=== PATIENT | female | born 1945 | race Caucasian/White ===

== ENCOUNTER → 2016-11-04 | Day surgery (SDC) | payer MEDICARE, OTHER ==
[~2016-11-04] VITALS: Ht 158.8 cm; Wt 96.4 kg
[~2016-11-04] MED LIST: ALEVE220 MG PO; AMARYL2 MG PO; ASPIRIN EC81 MG PO; ASPIRIN325 MG PO; BACTRIM DS1 TAB PO; FLONASE 50 MCG/16 GM NOSE; JANUMET XR 50-1 EAC1 PO; LIPITOR10 MG PO; PERCOCET 5-3251 EACH PO; PRINIVIL (ZESTR20 MG PO; TAMIFLU75 MG PO
--- NOTE | ~2016-11-04 | OR ---
PATIENT'S NAME: EMELY MCCLAIN [facility] AGE: 70 Y [address] ROOM: [place] [address] LOCATION: [facility] ADMIT DATE: 11/04/2016 OR/Procedure Report DISCHARGE DATE: FAMILY PHYSICIAN: Tor Hernandez ATTENDING PHYSICIAN: GIANNI RODRÍGEUZ SURGEON: Gianni Rodríguez MD SENIOR NET APPLICATION DEVELOPER: Tito Mejia PA-C DATE OF PROCEDURE: 11/04/2016 PREOPERATIVE DIAGNOSES: 1. Left footdrop secondary to rupture of tibialis anterior tendon. 2. Gastrocnemius equinus/shortened Achilles tendon. POSTOPERATIVE DIAGNOSES: 1. Left footdrop secondary to rupture of tibialis anterior tendon. 2. Gastrocnemius equinus/shortened Achilles tendon. PROCEDURES PERFORMED: 1. Left extensor hallucis longus tendon transfer to medial cuneiform. 2. Left gastrocnemius recession procedure. 3. Tenolysis of tibialis anterior tendon. 4. Tenodesis of extensor hallucis longus tendon to the extensor hallucis brevis tendon at first metatarsophalangeal joint. 5. Use of intraoperative fluoroscopy, less than one hour. ANESTHESIA: General endotracheal anesthesia with peripheral nerve block. FLUIDS: See anesthesia report. ESTIMATED BLOOD LOSS: Minimal. TOURNIQUET: Left proximal thigh, 250 mmHg. SPECIMENS: None. COMPLICATIONS: None. DISPOSITION: Stable, in PACU. IMPLANTS: Arthrex Bio-Tenodesis screw for EHL tendon transfer to medial cuneiform. INDICATIONS: Ms. Mcclain is a pleasant, 70-year-old female who underwent the noted procedures above. The risks, benefits, and alternatives to pursuing surgical intervention were discussed with the patient in detail. The patient PATIENT'S NAME: EMELY MCCLAIN [facility] AGE: 70 Y [address] ROOM: [place] [address] LOCATION: [facility] ADMIT DATE: 11/04/2016 OR/Procedure Report DISCHARGE DATE: FAMILY PHYSICIAN: Tor Hernandez ATTENDING PHYSICIAN: GIANNI RODRÍGUEZ elected to proceed with surgery as noted above. Anesthesia was consulted for their perioperative evaluation of the patient. I marked the left lower extremity, indicating the correct surgical site. PROCEDURE IN DETAIL: The patient was taken from the holding area to the operating room. A time-out was performed. General endotracheal anesthesia was administered. A peripheral nerve block had been previously placed. Clindamycin antibiotic was administered for perioperative prophylaxis. The left lower extremity was then prepped and draped in a sterile fashion. I turned my attention to the left lower extremity. An Esmarch was used to exsanguinate the limb, and the tourniquet was inflated to 250 mmHg. I introduced intraoperative fluoroscopy. I identified the medial cuneiform and marked it. I began with an incision over the first MTP joint. A skin incision was carried through skin and subcutaneous tissue down to the EHL tendon. I lysed the EHL tendon at the first MTP joint. Using FiberWire, I tenodesed these 2 tendons together. I irrigated the wound and then closed it in layers. I turned my attention to the anterior aspect of the ankle. I could feel the palpable defect from where the tibialis anterior tendon ruptured. I made an anterior incision to the front of the ankle. The incision was carried through skin and subcutaneous tissue. I identified the extensor retinaculum, lysed it, cut it, and tagged it with 0 Vicryl suture. I identified the tibialis anterior tendon sheath. I excised the distal portion of the tendon that was thickened and tendinotic. I identified the extensor hallucis longus tendon under a soft tissue tunnel. I brought the tendon and its stump proximally. There was a fair amount of excess tendon. I passed the tendon through the tibialis anterior tendon sheath and through the residual healthy proximal stump of the tibialis anterior tendon. I placed FiberWire tagging sutures beneath it so that there would be no propagation or tearing of the tendon. I then introduced intraoperative fluoroscopy again. I identified the medial cuneiform. Using a Beath pin, I measured my EHL tendon, and then I drilled using an acShyp reamer through the medial cuneiform in a center-center position. This was confirmed fluoroscopically. I then turned my attention to the medial aspect of the leg. I made incisions through the skin and subcutaneous tissue down through fascia to the gastrocnemius aponeurosis. I identified the gastrocnemius aponeurosis and performed my gastrocnemius recession procedure. A dorsiflexion movement was then placed on the ankle, and there was good excursion noted, indicating successful gastrocnemius recession. The wound was then irrigated and closed in layers. With the ankle dorsiflexed 10 degrees past neutral, I advanced the EHL tendon PATIENT'S NAME: EMELY MCCLAIN [facility] AGE: 70 Y [address] ROOM: [place] [address] LOCATION: [facility] ADMIT DATE: 11/04/2016 OR/Procedure Report DISCHARGE DATE: FAMILY PHYSICIAN: Tor Hernandez ATTENDING PHYSICIAN: GIANNI RODRÍGUEZ through my bony tunnel at the medial cuneiform. With my technician assistant holding the ankle in 10 degrees of dorsiflexion with tension on the EHL tendon passed through a bony tunnel, I then placed my Bio-Tenodesis screw. There was good interference noted when the screw was introduced. I then removed the stump of the tendon to the plantar surface of the foot. I had my technician assistant release the dorsiflexion movement on the ankle, and I found that the ankle remained in approximately 5 degrees of dorsiflexion past neutral without any assistance. The wound was then closed in layers using 0 Vicryl to approximate the extensor retinaculum, followed by 2-0 Vicryl to approximate the subcutaneous tissue, followed by hamiltno for the skin. The patient was then placed into a well-padded short-leg splint with the ankle in approximately 10 degrees of dorsiflexion past neutral and allowed to dry. Note that after the splint was placed, the tourniquet was let down, and then the patient was transferred from the operating table onto the stretcher and extubated. She was taken to the recovery room in stable condition. There were no intraoperative complications noted. Of note, my PA, Tito Mejia PA-C, played an integral role in the intraoperative care of this patient. This included preoperative positioning, intraoperative expert retraction, and closing and splinting functions. IMPRESSION: The patient is status post the noted procedures above. PLAN: The patient will be nonweightbearing on the left lower extremity in a splint. She will be encouraged to rest, ice, and elevate the leg going forward. She will be placed on aspirin for DVT prophylaxis. She will be given Percocet for pain control. She will be discharged home from the PACU provided she meets PACU discharge criteria. She will follow up with me in 2 weeks in the office for her first postoperative visit. MD ROGER PIERRE/derik /[id number] d: 11/04/161641 t: 11/05/161121, OPERATIVE SUMMARY
--- NOTE | 2016-11-04 16:25 | NUR ---
LATE ENTRY. VERBAL REPORT GIVEN TO JESI, PATIENT IS STABLE AND CARE IS TRANSFERED TO [facility]. DRESSING REMAIN C/D/I. GOOD PAIN CONTROL AT THIS TIME.
== END | disposition disaster alternative care site (69) ==
LOC: GPOC 10-30 13:00 → GSDC 07:00
PROC: 0L8P0ZZ Division of Left Lower Leg Tendon, Open Approach (ICD-10-PCS; principal; 2016-11-04)
PROC: 0LXP0ZZ Transfer Left Lower Leg Tendon, Open Approach (ICD-10-PCS; 2016-11-04)
PROC: 0LNP0ZZ Release Left Lower Leg Tendon, Open Approach (ICD-10-PCS; 2016-11-04)
PROC: 0LMP0ZZ Reattachment of Left Lower Leg Tendon, Open Approach (ICD-10-PCS; 2016-11-04)
DX: S86.212A Strain of muscle(s) and tendon(s) of anterior muscle group at lower leg level, left leg, initial encounter (principal); M21.6X2 Other acquired deformities of left foot; E11.9 Type 2 diabetes mellitus without complications; Z79.84 Long term (current) use of oral hypoglycemic drugs; I10 Essential (primary) hypertension; E78.5 Hyperlipidemia, unspecified
CPT/HCPCS: C1713; J2250; J3010; J7030

== ENCOUNTER 2017-02-05 11:30 | Inpatient (IN) | payer MEDICARE, OTHER ==
[~2017-02-05] VITALS: Ht 157.5 cm; Wt 93.5 kg
--- NOTE | ~2017-02-05 | DS ---
PATIENT'S NAME: EMELY MCCLAIN [facility] AGE: 71 Y [address] ROOM: [address] [address] LOCATION: [facility] ADMIT DATE: 02/05/2017 Discharge Summary DISCHARGE DATE: 02/07/2017 FAMILY PHYSICIAN: Tor Hernandez ATTENDING PHYSICIAN: Gaudencio Beltrán ADMITTING DIAGNOSIS: Left dorsum of the foot wound dehiscence with abscess and purulent drainage. DISCHARGE DIAGNOSIS: Left dorsum of the foot wound dehiscence with abscess and purulent drainage. SECONDARY DIAGNOSES: 1. Diabetes mellitus type 2. 2. Hypertension. 3. Hyperlipidemia. 4. Osteoarthritis. 5. Obesity. PROCEDURES: The patient underwent the following procedure on February 05, 2017, by Dr. Beltrán. Irrigation and debridement of the left foot wound abscess. Debridement including skin, subcutaneous tissue, muscle, and fascia. Incision measured 5 cm in length x 2 cm in width x 2 cm in depth. CONSULTATION: The hospitalist service for medical management. HISTORY OF PRESENT ILLNESS: The patient is a 71-year-old female, who was seen by Dr. Beltrán in the office with complaints of a wound on the dorsum of her left foot with purulent drainage. The patient had undergone a tendon transfer procedure with tenolysis and tendinosis in October because of chronic foot drop secondary to rupture of the tibialis anterior tendon. The patient had first noted before coming in the office some redness and swelling. The patient later noted that there was a wound on the dorsum of her foot with some purulent drainage, and made an appointment to be seen by Dr. Beltrán. After being examined in the office by Dr. Beltrán, the patient was admitted to the hospital for irrigation and debridement of the wound. HOSPITAL COURSE: The patient was admitted on February 05, [address] Beltrán' office. She underwent the above described procedure and tolerated it well. The patient was put on postoperative IV antibiotics. She was weightbearing as tolerated during her admission. The patient was medically managed and optimized by the hospitalist service. The patient was felt to be stable for discharge to home on February 07, 2017 and was discharged at that time. DISCHARGE INSTRUCTIONS: The patient is to be weightbearing as tolerated with a boot. She has no restrictions on diet. She is to contact Dr. Beltrán' PATIENT'S NAME: EMELY MCCLAIN [facility] AGE: 71 Y [address] ROOM: [place] [address] LOCATION: [facility] ADMIT DATE: 02/05/2017 Discharge Summary DISCHARGE DATE: 02/07/2017 FAMILY PHYSICIAN: Tor Hernandez ATTENDING PHYSICIAN: Gaudencio Beltrán office for followup appointment. DISCHARGE MEDICATIONS: New medications: 1. Bactrim DS one tab p.o. b.i.d. by seven days. 2. Percocet 5/325 one tablet p.o. every 6 hours as needed for pain. Otherwise, the patient is to continue her preadmission medications as instructed by her internal medicine doctor. DISCHARGE STATUS: Good. KAMLESH LUIS PA-C FOR MD DOMINIQUE PIERRE/derik /[id number] d: 02/23/17 0158 t: 02/24/17 1412, DISCHARGE SUMMARY
--- NOTE | ~2017-02-05 | CON ---
PATIENT'S NAME: EMELY MCCLAIN [facility] AGE: 71 Y [address] ROOM: [address] [address] [place] [facility] DATE: 02/05/2017 Consultation DISCHARGE DATE: FAMILY PHYSICIAN: Tor Hernandez ATTENDING PHYSICIAN: GIANNI RODRÍGUEZ DATE OF CONSULTATION: 02/05/2017 REFERRING PHYSICIAN: Prakash Norman MD CHIEF COMPLAINT/REASON FOR CONSULTATION: Medical management in the setting of left foot abscess. HISTORY OF PRESENTING ILLNESS: This 71-year-old white female, with history of diabetes mellitus type 2 and previous history of ankle surgery in October 2016, was admitted to [facility] today from [facility] with concern for infection in the operative foot. Briefly, she had undergone a tendon transfer procedure with tenolysis and tenodesis in October because of chronic footdrop secondary to rupture of the tibialis anterior tendon. This was accomplished without any complications. Postoperatively, she has been experiencing limited mobility. Today, she followed up with Dr. Rodríguez because of some persistent redness, swelling, and tenderness about the affected foot. She has also had a draining lesion from the dorsal surface of the foot. Because of the concern for infection, it was decided to admit her for irrigation and debridement. Otherwise, she feels well. She denies fever, chills, or sweats. She denies headache, dizziness, or lightheadedness. She has been eating and drinking normally as of late. She complains of feeling hungry now. She has not eaten anything today. She denies any episodes of chest pain. No dyspnea, and no dyspnea with exertion or orthopnea. She sleeps well. She has not had any abdominal pain. Stools have been fairly regular, although she has not stooled yet today. She denies any urinary complaints. No dysuria, frequency, urgency, or hematuria. She denies numbness, tingling, or weakness in her extremities or any other associated physical or constitutional concerns. PAST MEDICAL HISTORY: ALLERGIES: PENICILLIN CAUSES ITCHING, TAPE CAUSES REDNESS. ILLNESSES: 1. Diabetes mellitus, type 2. 2. Essential hypertension. PATIENT'S NAME: EMELY MCCLAIN [facility] AGE: 71 Y [address] ROOM: [address] [address] [place] [facility] [place]: 02/05/2017 Consultation DISCHARGE DATE: FAMILY PHYSICIAN: Tor Hernandez ATTENDING PHYSICIAN: GIANNI RODRÍGUEZ 3. Hyperlipidemia. 4. Obesity. 5. Osteoarthritis, generalized. CURRENT MEDICATIONS: 1. Aspirin 650 mg p.o. daily. 2. Atorvastatin 10 mg p.o. daily. 3. Glimepiride 2 mg p.o. q.a.m. 4. Lisinopril 20 mg p.o. daily. 5. Naproxen 440 mg p.o. daily p.r.n. 6. Janumet XR 50/500 two tablets p.o. daily. 7. Bactrim DS one tablet p.o. b.i.d. through 02/08/2017 (started on 02/02). FAMILY HISTORY: Significant for coronary artery disease in her father. Mother had cancer. SOCIAL HISTORY: She is and lives in [place]. She is a lifelong nonsmoker and rarely drinks alcohol. REVIEW OF SYSTEMS: As per HPI. All other organ systems reviewed and are negative. PHYSICAL EXAMINATION: VITAL SIGNS: Temperature 97.9, pulse 69, respirations 16, and blood pressure 150/70. Weight is 93.5 kg. GENERAL: She is very pleasant, cooperative, seated in the bed, in no acute distress. SKIN: Supple, pink, warm, and dry. There is some hyperemia overlying the dorsum of the left foot. The incision site at the distal leg and proximal ankle appears well healed and well approximated without any complicating features; however, there is a punctate lesion with some purulent debris and a little bit of granulomatous debris. No teddy bleeding. HEENT: Otherwise, normocephalic. Sclerae are nonicteric. Pupils equal, round, and reactive to light and accommodation. Extraocular movements appear intact. Nasal turbinates normal in appearance. Oropharynx clear. Mucous membranes are pink and moist. NECK: Supple, plethoric, and obese. No masses or adenopathy. No thyromegaly. No JVD. CHEST: Chest wall is symmetrical. HEART: Regular without murmurs. LUNGS: Clear bilaterally. No wheezes or crackles heard. ABDOMEN: Soft, obese, and nontender. Bowel sounds present. No masses or hepatosplenomegaly. GENITOURINARY: Not done. PATIENT'S NAME: EMELY MCCLAIN [facility] AGE: 71 Y [address] ROOM: [address] [place] [address] [place] [facility] DATE: 02/05/2017 Consultation DISCHARGE DATE: FAMILY PHYSICIAN: Tor Hernandez ATTENDING PHYSICIAN: GIANNI RODRÍGUEZ RECTAL: Not done. EXTREMITIES: Display trace pitting edema, left greater than right. No cyanosis. NEUROLOGICAL: Cranial nerves 2 through 12 appear grossly intact. Sensation appears normal. Strength is 5/5 bilaterally in the upper and lower extremities. DTRs are 1 to 2+ and symmetrical. Gait is steady with the assistance of the knee scooter. LABORATORY AND X-RAY DATA: CBC showed a white blood cell count of 6.5, hemoglobin is 13.5, hematocrit 39.6, and platelets 196. Chemistries reveal BUN and creatinine of 17 and 1.1 respectively, sodium and potassium 139 and 4.2, chloride and CO2 are 105 and 26, calcium 9.3, and glucose 101. PT and PTT 10.6 and 24 respectively with an INR of 1.01. ASSESSMENT AND PLAN: 1. Diabetes mellitus, type 2. Historically, very well controlled on oral hypoglycemic therapy. We will hold the orals while she is inpatient and since she is n.p.o. We will manage with Accu-Cheks q.6 hours and sliding scale insulin. 2. Essential hypertension, also adequately controlled. We will monitor the trend, continue her home medication regimen, and make adjustments if necessary. 3. Hyperlipidemia. Continue statin therapy. Plan clinical followup with a primary care provider. 4. Left foot abscess. We will plan for irrigation and debridement under the direction of Dr. Rodríguez perhaps later today. There are no absolute contraindications to proceed with surgery. We will hold off on antibiotic therapy and await operative findings and postoperative recommendations. 5. Morbid obesity. Will need long-term strategies for weight loss including balanced dietary intake, calorie reduction, increased exercise, etc. 6. Osteoarthritis, generalized. Recommend discontinuation of nonsteroidal antiinflammatory drug therapy. We will try to pursue nonopioid analgesics. 7. Deep venous thrombosis prophylaxis. We will follow the venous thromboembolism protocol, but hold off on heparin or Lovenox in light of the plan for operative intervention as above. MD ALEX GUTIERRES/derik PATIENT'S NAME: EMELY MCCLAIN [facility] AGE: 71 Y [address] ROOM: [place] [address] [place] [facility] [place]: 02/05/2017 Consultation DISCHARGE DATE: FAMILY PHYSICIAN: Tor Hernandez ATTENDING PHYSICIAN: GIANNI RODRÍGUEZ /[id number] d: 02/05/171820 t: 02/06/17 1151, CONSULTATION REPORT
--- NOTE | ~2017-02-05 | OR ---
PATIENT'S NAME: EMELY MCCLAIN [facility] AGE: 71 Y [address] ROOM: [place] [address] [place] [facility] [place] DATE: 02/05/2017 OR/Procedure Report DISCHARGE DATE: FAMILY PHYSICIAN: Tor Hernandez ATTENDING PHYSICIAN: GIANNI RODRÍGUEZ SURGEON: Gianni Rodríguez MD BUILDING CUSTODIAL SUPERVISOR: Tito Mejia PA-C. DATE OF PROCEDURE: 02/05/2017 PREOPERATIVE DIAGNOSIS: Dorsum of left foot wound dehiscence with abscess and purulent drainage. POSTOPERATIVE DIAGNOSIS: Dorsum of left foot wound dehiscence with abscess and purulent drainage. PROCEDURE: Irrigation and debridement of the left foot wound abscess. Debridement included skin, subcutaneous tissue, muscle, and fascia. Incision measured 5 cm in length x 2 cm in width x 2 cm in depth. ANESTHESIA: General endotracheal anesthesia. FLUIDS: See Anesthesia. ESTIMATED BLOOD LOSS: Minimal. TOURNIQUET: Left proximal thigh 250 mmHg. SPECIMEN: Left foot wound cultures. COMPLICATIONS: None. DISPOSITION: Stable in PACU. COUNTS: All counts correct. INDICATIONS: Ms. Mcclain is a 71-year-old female who underwent the noted procedures above. The risks, benefits, and alternatives of pursuing surgical intervention were discussed with the patient in detail. She elected to proceed with surgery. I marked the patient's left lower extremity indicating the correct surgical site. Anesthesia was consulted for their perioperative evaluation of the patient. OPERATIVE REPORT IN DETAIL: The patient was brought from the holding area to the operating room. A time-out was performed. General endotracheal anesthesia was administered. PATIENT'S NAME: EMELY MCCLAIN [facility] AGE: 71 Y [address] ROOM: [place] [address] [place] [facility] [place]: 02/05/2017 OR/Procedure Report DISCHARGE DATE: FAMILY PHYSICIAN: Tor Hernandez ATTENDING PHYSICIAN: GIANNI RODRÍGUEZ The left lower extremity was then prepped and draped in a sterile fashion. I turned my attention to the left foot. I made a surgical incision over the wound using a 15 blade knife. I dissected down to expose the abscess. Cultures of the purulent material were obtained. The debridement of nonviable tissue included skin, subcutaneous tissue, muscle and fascia. The tendon that had been transferred previously appeared to be intact and uninvolved. I then irrigated the wound with 3 L of normal sterile saline solution. Antibiotics were then administered in the form of clindamycin as the patient has a penicillin allergy. Using a 3-0 nylon suture, the wound measuring the dimensions listed above was closed using interrupted horizontal mattress suture technique. They were loosely approximated to allow for drainage. The tourniquet was then let down. Sterile dressing was placed in the form of Xeroform, followed by 4x4, Webril, and Tristan bandage. The patient was then transferred from the operating room table onto the stretcher and extubated. She was brought to the recovery room in stable condition. There were no intraoperative complications noted. Of note, my PA, Tito Mejia PA-C, played an integral role in the intraoperative care of this patient. This included preoperative positioning, intraoperative expert retraction, and closing and dressing functions. IMPRESSION: The patient is status post the noted procedure above. PLAN: The patient will be weightbearing as tolerated in the left lower extremity. She will be instructed to rest, ice, and elevate the leg otherwise. She will be continued on clindamycin antibiotics while the intraoperative cultures are pending. Hospitalist has been consulted to manage the patient's concomitant medical comorbidities. Postoperative pain control will be in the form of Percocet and IV morphine as needed for pain. DVT prophylaxis will be mechanical in nature. Physical Therapy and Occupational Therapy will be consulted for early ambulation and prevention of deconditioning. I will continue to follow the patient closely in the postoperative period. GIANNI RODRÍGUEZ MD PATIENT'S NAME: EMELY MCCLAIN [facility] AGE: 71 Y [address] ROOM: [place] [address] [place] [facility] [place] DATE: 02/05/2017 OR/Procedure Report DISCHARGE DATE: FAMILY PHYSICIAN: Tor Hernandez ATTENDING PHYSICIAN: GIANNI RODRÍGUEZ/derik /[id number] d: 02/05/170 t: 02/06/17 1453, OPERATIVE SUMMARY
[~2017-02-05 11:30] MED LIST changes: -ALEVE220 MG PO; -BACTRIM DS1 TAB PO
[2017-02-05] MEDS ORDERED: ALEVE220 MG PO (13:00)
[2017-02-05] MEDS ORDERED: BACTRIM DS1 TAB PO (13:00)
--- NOTE | 2017-02-05 13:39 | NUR ---
History of hypertension, diabetes Type 2 orally controlled, non-smoker, non-drinker, seasonal allergies, had surgery in October 2016 w/Dr Beltrán for foot drop of left foot. Surgical site oozing. Will have I&D today. Possible d/c tomorrow. PIV s/l'd to [facility]. NPO for surgery. at bedside.
[2017-02-05 14:10] LABS: BASOPHIL % 0.5 %; EOSINOPHIL # 0.1 K/uL (0.0-0.5); EOSINOPHIL % 1.8 %; HEMATOCRIT 39.6 % (33.0-46.0); HEMOGLOBIN 13.5 g/dL (10.0-15.0); IMMATURE GRANULOCYTE % 0.3 %; LYMPHOCYTE # 1.7 K/uL (0.8-4.0); LYMPHOCYTE % 26.7 %; MCHC 34.1 gm/dL (32.0-36.5); MONOCYTE # 0.5 K/uL (0.0-1.0); MONOCYTE % 7.5 %; MPV 10.1 fl (9.4-12.4); NEUTROPHIL # (ANC) 4.1 K/uL (1.8-7.8); NEUTROPHIL % 63.2 %; NRBC % 0 /100WBC (0-0.00); PLATELET COUNT 196 K/uL (150-450); RBC 4.35 M/uL (3.50-5.50); RDW-CV 13.2 % (11.9-14.6); WBC 6.5 K/uL (4.0-11.0)
[2017-02-05 14:22] LABS: INR - (THERAPEUTIC) 1.01 (0.92-1.07); PROTIME 10.6 SECONDS (9.8-11.4); PTT 24 SECONDS (25-32)
[2017-02-05 14:25] LABS: ANION GAP 12.2 (10.0-19.0); CALCIUM 9.3 mg/dL (8.5-10.5); CREATININE 1.1 mg/dL (0.5-1.1); POTASSIUM 4.2 mMol/L (3.7-5.1)
--- NOTE | 2017-02-06 02:30 | NUR ---
Significant Event: Patient alert and oriented X4. Up with one assist. Patient voiding well. Weight bearing as tolerated, but pt still using scooter. Vitals stable and on 2 liters oxygen. Diet as tolerated. Still on q6h accuchecks, may ask if we can disconintue today? On IV clindamycin every 8 hours. L) foot martha wrapped. Ice on. Elevate above heart. L) forearm IV saline locked. Tolerating po fluids. Started on stool softener last night. Q2 hour neuro checks Follow up: Monitor neuro checks
--- NOTE | 2017-02-06 15:37 | NUR ---
Significant event: Up to BR using own knee scooter, she reports she does not want to put weight on her foot. Zofran this am for nausea. Percocet 1 tablet for pain at 1515. No pain until 1515. CSM adequate to left foot, dressing dry and intact. Antibiotics continue.
--- NOTE | 2017-02-07 04:03 | NUR ---
Significant Event:Patient doing well, neuro checks WNL. Taking tylenol for pain last at 0336. Reports that pain is only a 3 but wants to stay on top of it and not take the narcotics. Up to bathroom several times throughout the night with the use of a skooter. Alert and orientated, pleasant and cooperative with cares. Vitals WNL. Voices no other complaints. Follow up: Continue to monitor.
[2017-02-07] MEDS ORDERED: PERCOCET 5-3251 EACH PO (13:41)
--- NOTE | 2017-02-07 14:09 | NUR ---
Significant event: Up in room, gait steady. Denies pain. Dismissed to home with .
== END 2017-02-07 14:00 | disposition disaster alternative care site (69) | DRG 580 ==
LOC: GMSU 11:34
PROVIDERS: ADMIT Orthopaedic Surgery Adult Reconstructive Orthopaedic Surgery
PROC: 0KBW0ZZ Excision of Left Foot Muscle, Open Approach (ICD-10-PCS; principal; 2017-02-05)
DX: L02.612 Cutaneous abscess of left foot (principal); T81.32XA Disruption of internal operation (surgical) wound, not elsewhere classified, initial encounter; E11.9 Type 2 diabetes mellitus without complications; I10 Essential (primary) hypertension; E78.5 Hyperlipidemia, unspecified; E66.01 Morbid (severe) obesity due to excess calories; M19.90 Unspecified osteoarthritis, unspecified site; Z79.84 Long term (current) use of oral hypoglycemic drugs; Z79.52 Long term (current) use of systemic steroids; Y83.8 Other surgical procedures as the cause of abnormal reaction of the patient, or of later complication, without mention of misadventure at the time of the procedure; Y92.9 Unspecified place or not applicable
CPT/HCPCS: J2270; J2405; J2765; J3010; J7030